=== PATIENT | male | born 1955 | race Caucasian/White ===

== ENCOUNTER 2022-05-19 17:07 | Emergency (ER) | payer OTHER, MEDICARE, MEDICAID | END 2022-05-19 19:50 | disposition home or self-care (01) | LOC: FB.ED 17:07 | DX: S16.1XXA Strain of muscle, fascia and tendon at neck level, initial encounter (principal); S39.012A Strain of muscle, fascia and tendon of lower back, initial encounter; S13.4XXA Sprain of ligaments of cervical spine, initial encounter; I10 Essential (primary) hypertension; Z86.73 Personal history of transient ischemic attack (TIA), and cerebral infarction without residual deficits; Z88.8 Allergy status to other drugs, medicaments and biological substances; V89.2XXA Person injured in unspecified motor-vehicle accident, traffic, initial encounter; Y92.410 Unspecified street and highway as the place of occurrence of the external cause | CPT/HCPCS: 70450; 72100; 72125; 99284 ==

== ENCOUNTER 2023-03-17 05:46 | Emergency (ER) | payer MEDICARE, OTHER ==
[2023-03-17] MEDS ORDERED: Morphine 4 MG/ML VIAL IM ONE (06:52)
[2023-03-17] MEDS ORDERED: hydrOXYzine HCl 50 MG/ML SDV IM ONE (06:52)
[2023-03-17 07:00] LABS: INFLUENZA A NAA NEGATIVE (NEGATIVE); INFLUENZA B NAA NEGATIVE (NEGATIVE); RESPIRATORY SYNCYTIAL VIR NAA NEGATIVE (NEGATIVE)
[2023-03-17 07:05] LABS: CORONAVIRUS COVID-19 NAA NEGATIVE (NEGATIVE)
[2023-03-17 07:30] LABS: HEMATOCRIT 36.1 % (38.3-50.1); HEMOGLOBIN 11.3 g/dL (12.9-17.7); MEAN CORPUSCULAR HEMOGLOBIN 28.9 pg (27.0-33.3); MEAN CORPUSCULAR HGB CONC 31.3 g/dL (28.7-35.3); MEAN CORPUSCULAR VOLUME 92.2 fL (80.8-98.7); MEAN PLATELET VOLUME 7.3 fL (6.7-11.0); PLATELET COUNT,PLT 111 x10(3)uL (117-477); RED BLOOD CELL COUNT 3.92 x10(6)uL (3.90-5.90); RED CELL DISTRIBUTION WIDTH 15.4 % (12.4-15.0)
[2023-03-17 07:34] LABS: WHITE BLOOD CELL COUNT,WBC 54.8 x10-3/uL (3.2-10.1)
[2023-03-17 07:37] LABS: BLOOD UREA NITROGEN,BUN 19 mg/dL (7-18); BUN/CREATININE RATIO 14.6 (9-20); CALCIUM 8.9 mg/dL (8.6-10.2); CARBON DIOXIDE,CO2 25 mmol/L (21-32); CHLORIDE,CL 103 mmol/L (100-110); CREATININE 1.3 mg/dL (0.70-1.30); EST CRCL DRUG DOSING (CG) 54.81 mL/min; ESTIMATED GFR 61 mL/min (>60); GLUCOSE RANDOM 116 mg/dL (80-116); POTASSIUM,K 3.7 mmol/L (3.5-5.3); SODIUM,NA 139 mmol/L (135-145)
[2023-03-17 07:47] LABS: BLASTS PERCENT MAN 6 % (0-0); LYMPHOCYTES PERCENT MAN 89 % (13-37); MONOCYTES PERCENT MAN 2 % (4-12); SEG NEUTROPHILS PERCENT MAN 3 % (46-82)
[2023-03-17 07:50] LABS: SEDIMENTATION RATE MANUAL 31 mm/hr (0-15)
== END 2023-03-17 08:51 | disposition other institution (70) ==
LOC: FB.ED 05:46
DX: C91.Z0 Other lymphoid leukemia not having achieved remission (principal); I10 Essential (primary) hypertension; Z88.8 Allergy status to other drugs, medicaments and biological substances; Z79.899 Other long term (current) drug therapy; Z20.822 Contact with and (suspected) exposure to COVID-19
CPT/HCPCS: 0241U; 36415; 70360; 71046; 80048; 85025; 85651; 86140; 87651; 96372; 99285; J2270; J3410

== ENCOUNTER 2023-03-30 14:11 | Emergency (ER) | payer MEDICARE, OTHER ==
[2023-03-30] MEDS ORDERED: Sodium Chloride 0.9% 10 ML Syringe FLUSH PRN (14:45)
[2023-03-30] MEDS ORDERED: Ondansetron 4 MG/2 ML SDV IVPUSH ONE ×2 (15:01→17:21)
[2023-03-30] MEDS ORDERED: Dextrose 5%-0.9% NaCl 1,000 ML IV SCH (15:15)
[2023-03-30 15:36] LABS: HEMATOCRIT 38.3 % (38.3-50.1); HEMOGLOBIN 12.2 g/dL (12.9-17.7); MEAN CORPUSCULAR HGB CONC 31.9 g/dL (28.7-35.3); MEAN CORPUSCULAR VOLUME 90.8 fL (80.8-98.7); MEAN PLATELET VOLUME 7.2 fL (6.7-11.0); PLATELET COUNT,PLT 125 x10(3)uL (117-477); RED BLOOD CELL COUNT 4.21 x10(6)uL (3.90-5.90); RED CELL DISTRIBUTION WIDTH 15.8 % (12.4-15.0)
[2023-03-30 15:37] LABS: BLOOD UREA NITROGEN,BUN 15 mg/dL (7-18); BUN/CREATININE RATIO 11.5 (9-20); CALCIUM 8.3 mg/dL (8.6-10.2); CARBON DIOXIDE,CO2 24 mmol/L (21-32); CHLORIDE,CL 98 mmol/L (100-110); CREATININE 1.3 mg/dL (0.70-1.30); ESTIMATED GFR 61 mL/min (>60); GLUCOSE RANDOM 101 mg/dL (80-116); POTASSIUM,K 3.2 mmol/L (3.5-5.3); SODIUM,NA 134 mmol/L (135-145)
[2023-03-30 15:42] LABS: ALANINE AMINOTRANSFERASE,ALT 36 U/L (12-36); ALBUMIN 3.8 g/dL (3.2-4.6); ALKALINE PHOSPHATASE 112 IU/L (56-112); ASPARTATE AMNIOTRANSFERASE,AST 28 IU/L (5-25); BILIRUBIN TOTAL 0.3 mg/dL (0.1-1.3); PROTEIN TOTAL,TP 7.6 g/dL (6.0-8.0)
[2023-03-30 15:46] LABS: LACTIC ACID 0.9 mmol/L (0.4-2.0)
[2023-03-30 16:24] LABS: WHITE BLOOD CELL COUNT,WBC 47.4 x10-3/uL (3.2-10.1)
[2023-03-30 16:45] LABS: LYMPHOCYTES PERCENT MAN 84 % (13-37); MONOCYTES PERCENT MAN 1 % (4-12); SEG NEUTROPHILS PERCENT MAN 15 % (46-82)
[2023-03-30] MEDS ORDERED: Pantoprazole 40 MG Vial IVPUSH ONE (17:21)
[2023-03-30] MEDS ORDERED: Ketorolac 30 MG/ML SDV IVPUSH ONE (17:21)
[2023-03-30] MEDS ORDERED: Potassium Chloride 20 MEQ Tab.ER PO ONE (17:25)
[2023-03-30] MEDS ORDERED: Sodium Chloride 0.9% 1,000 ML IV SCH (17:30)
[2023-03-30 17:41] LABS: BILIRUBIN,URINE NEGATIVE (NEGATIVE); GLUCOSE,URINE NORMAL (NORMAL); KETONES,URINE 15 mg/dL (NEGATIVE); LEUKOCYTE ESTERASE,URINE NEGATIVE (NEGATIVE); NITRITE,URINE NEGATIVE (NEGATIVE); OCCULT BLOOD,URINE MODERATE (NEGATIVE); PROTEIN,URINE NEGATIVE (NEGATIVE); UROBILINOGEN,URINE NORMAL (NEGATIVE)
[2023-03-30 17:42] LABS: APPEARANCE,URINE CLEAR (CLEAR); BACTERIA,URINE RARE (NS); COLOR,URINE YELLOW (YELLOW); RBC,URINE 0-5 (0-5); SQUAMOUS EPITHELIAL CELLS,UR OCCASIONAL (NS,R,O); WBC,URINE 0-5 (0-5)
[2023-03-30 19:00] LABS: BLOOD UREA NITROGEN,BUN 13 mg/dL (7-18); BUN/CREATININE RATIO 10.8 (9-20); CALCIUM 7.2 mg/dL (8.6-10.2); CARBON DIOXIDE,CO2 25 mmol/L (21-32); CHLORIDE,CL 102 mmol/L (100-110); CREATININE 1.2 mg/dL (0.70-1.30); EST CRCL DRUG DOSING (CG) 57.38 mL/min; ESTIMATED GFR 67 mL/min (>60); GLUCOSE RANDOM 126 mg/dL (80-116); POTASSIUM,K 3.1 mmol/L (3.5-5.3); SODIUM,NA 135 mmol/L (135-145)
[2023-03-30] MEDS ORDERED: Iopamidol 755 Mg/ML 100 ML Bottle IV ONE (19:30)
[2023-03-30] MEDS ORDERED: Potassium Chloride 20 MEQ Tab.ER PO STA (19:41)
[2023-03-30] MEDS ORDERED: Potassium Chloride 20 MEQ Tab.ER ONE (19:42)
[2023-03-30] MEDS ORDERED: metroNIDAZOLE 500 MG Tab PO STA (20:22)
[2023-03-30] MEDS ORDERED: Vancomycin 125 MG Cap PO STA (20:22)
== END 2023-03-30 20:55 | disposition home or self-care (01) ==
LOC: FB.ED 14:11
DX: E87.6 Hypokalemia (principal); A04.72 Enterocolitis due to Clostridium difficile, not specified as recurrent; C91.00 Acute lymphoblastic leukemia not having achieved remission; I10 Essential (primary) hypertension; Z88.8 Allergy status to other drugs, medicaments and biological substances
CPT/HCPCS: 36415; 71045; 74177; 80048; 80053; 81001; 83605; 84484; 85025; 87040; 87230; 93005; 96361; 96374; 96375; 96376; 99284; A9270; C9113; J1885; J2405; J7030; Q9967; 87425

== ENCOUNTER 2023-09-01 11:31 | Emergency (ER) | payer MEDICARE, OTHER ==
[2023-09-01] MEDS: Ondansetron 4 MG/2 ML SDV IVPUSH ONE (12:11)
[2023-09-01 12:23] LABS: BLOOD UREA NITROGEN,BUN 27 mg/dL (7-18); BUN/CREATININE RATIO 24.5 (9-20); CALCIUM 9.1 mg/dL (8.6-10.2); CARBON DIOXIDE,CO2 30 mmol/L (21-32); CHLORIDE,CL 99 mmol/L (100-110); CREATININE 1.1 mg/dL (0.70-1.30); EST CRCL DRUG DOSING (CG) 62.83 mL/min; ESTIMATED GFR 74 mL/min (>60); GLUCOSE RANDOM 100 mg/dL (80-116); HEMATOCRIT 38.1 % (38.3-50.1); HEMOGLOBIN 11.7 g/dL (12.9-17.7); MEAN CORPUSCULAR HEMOGLOBIN 29.5 pg (27.0-33.3); MEAN CORPUSCULAR HGB CONC 30.7 g/dL (28.7-35.3); MEAN CORPUSCULAR VOLUME 95.8 fL (80.8-98.7); MEAN PLATELET VOLUME 7.1 fL (6.7-11.0); PLATELET COUNT,PLT 112 x10(3)uL (117-477); POTASSIUM,K 4.2 mmol/L (3.5-5.3); RED BLOOD CELL COUNT 3.97 x10(6)uL (3.90-5.90); RED CELL DISTRIBUTION WIDTH 15.1 % (12.4-15.0); SODIUM,NA 136 mmol/L (135-145)
[2023-09-01 12:29] LABS: A/G RATIO 1.1; ALANINE AMINOTRANSFERASE,ALT 51 U/L (12-36); ALBUMIN 3.9 g/dL (3.2-4.6); ALKALINE PHOSPHATASE 126 IU/L (56-112); AMYLASE 83 U/L (25-115); ASPARTATE AMNIOTRANSFERASE,AST 32 IU/L (5-25); BILIRUBIN TOTAL 0.4 mg/dL (0.1-1.3); PROTEIN TOTAL,TP 7.5 g/dL (6.0-8.0)
[2023-09-01 12:32] LABS: TROPONIN I 4.6 pg/mL (4.0-60.3)
[2023-09-01 12:33] LABS: WHITE BLOOD CELL COUNT,WBC 119.7 x10-3/uL (3.2-10.1)
[2023-09-01 12:43] LABS: MONOCYTES PERCENT MAN 2 % (4-12); SEG NEUTROPHILS PERCENT MAN 5 % (46-82)
[2023-09-01 12:44] LABS: LYMPHOCYTES PERCENT MAN 93 % (13-37)
[2023-09-01] MEDS: Sodium Chloride 0.9% 1,000 ML IV SCH (12:45)
[2023-09-01] MEDS: Morphine 4 MG/ML VIAL IVPUSH ONE (13:00)
[2023-09-01] MEDS: Prochlorperazine 10 MG/2 ML SDV IVPUSH ONE (13:03)
[2023-09-01] MEDS: Morphine 2 MG/ML SYRINGE IVPUSH ONE (13:04)
[2023-09-01 13:07] LABS: BILIRUBIN,URINE NEGATIVE (NEGATIVE); GLUCOSE,URINE NORMAL (NORMAL); KETONES,URINE NEGATIVE (NEGATIVE); LEUKOCYTE ESTERASE,URINE NEGATIVE (NEGATIVE); NITRITE,URINE NEGATIVE (NEGATIVE); OCCULT BLOOD,URINE NEGATIVE (NEGATIVE); PROTEIN,URINE NEGATIVE (NEGATIVE); UROBILINOGEN,URINE NORMAL (NEGATIVE)
[2023-09-01 13:08] LABS: APPEARANCE,URINE CLEAR (CLEAR); BACTERIA,URINE NOT SEEN (NS); COLOR,URINE YELLOW (YELLOW); RBC,URINE 0-5 (0-5); SQUAMOUS EPITHELIAL CELLS,UR RARE (NS,R,O); WBC,URINE 0-5 (0-5)
== END 2023-09-01 14:40 | disposition home or self-care (01) ==
LOC: FB.ED 11:31
DX: C91.10 Chronic lymphocytic leukemia of B-cell type not having achieved remission (principal); D69.6 Thrombocytopenia, unspecified; I10 Essential (primary) hypertension; E78.00 Pure hypercholesterolemia, unspecified; Z86.73 Personal history of transient ischemic attack (TIA), and cerebral infarction without residual deficits; Z79.899 Other long term (current) drug therapy; Z88.8 Allergy status to other drugs, medicaments and biological substances
CPT/HCPCS: 36415; 71045; 74176; 80053; 81001; 82150; 83690; 84484; 85025; 93005; 93010; 96361; 96374; 96375; 99284; 99284-25; J0780; J2270; J2405; J7030

== ENCOUNTER 2024-06-07 13:12 | Emergency (ER) | payer MEDICARE, OTHER ==
[2024-06-07 13:40] LABS: HEMATOCRIT 34.8 % (38.3-50.1); HEMOGLOBIN 11.5 g/dL (12.9-17.7); MEAN CORPUSCULAR HEMOGLOBIN 29.8 pg (27.0-33.3); MEAN CORPUSCULAR HGB CONC 33.1 g/dL (28.7-35.3); MEAN PLATELET VOLUME 7.7 fL (6.7-11.0); PLATELET COUNT,PLT 162 x10(3)uL (117-477); RED BLOOD CELL COUNT 3.86 x10(6)uL (3.90-5.90); RED CELL DISTRIBUTION WIDTH 14.6 % (12.4-15.0); WHITE BLOOD CELL COUNT,WBC 19.8 x10-3/uL (3.2-10.1)
[2024-06-07 13:51] LABS: BLOOD UREA NITROGEN,BUN 16 mg/dL (7-18); BUN/CREATININE RATIO 12.3 (9-20); CALCIUM 8.8 mg/dL (8.6-10.2); CARBON DIOXIDE,CO2 29 mmol/L (21-32); CHLORIDE,CL 98 mmol/L (100-110); CREATININE 1.3 mg/dL (0.70-1.30); ESTIMATED GFR 60 mL/min (>60); GLUCOSE RANDOM 111 mg/dL (80-116); POTASSIUM,K 3.9 mmol/L (3.5-5.3); SODIUM,NA 135 mmol/L (135-145)
[2024-06-07 14:03] LABS: BAND PERCENT MAN 1 % (0-6); LYMPHOCYTES PERCENT MAN 66 % (13-37); MONOCYTES PERCENT MAN 3 % (4-12); SEG NEUTROPHILS PERCENT MAN 30 % (46-82)
[2024-06-07 14:04] LABS: A/G RATIO 0.7; ALANINE AMINOTRANSFERASE,ALT 26 U/L (12-36); ALBUMIN 2.8 g/dL (3.2-4.6); ALKALINE PHOSPHATASE 96 IU/L (56-112); ASPARTATE AMNIOTRANSFERASE,AST 16 IU/L (5-25); BILIRUBIN TOTAL 0.6 mg/dL (0.1-1.3); PROTEIN TOTAL,TP 6.7 g/dL (6.0-8.0)
[2024-06-07 14:28] LABS: LACTIC ACID 1.1 mmol/L (0.4-2.0)
[2024-06-07] MEDS: Iopamidol 755 Mg/ML 100 ML Bottle IV SCH (14:58)
[2024-06-07] MEDS: Sodium Chloride 0.9% 1,000 ML IV SCH (15:05)
[2024-06-07] MEDS: cefTRIAXone 1 GM Vial IVPUSH SCH (16:35)
[2024-06-07] MEDS: Sodium Chloride 0.9% 10 ML Syringe FLUSH PRN (16:35)
[2024-06-07] MEDS: Azithromycin 500 MG in Sodium Chloride 0.9% 250 ML IV SCH (16:41)
[2024-06-07] MEDS: Metoclopramide 10 MG/2 ML SDV IVPUSH ONE (16:43)
[2024-06-07] MEDS: Ketorolac 30 MG/ML SDV IVPUSH ONE (16:43)
== END 2024-06-07 18:00 ==
LOC: FB.ED 13:12 → SUPCPDRO 13:12 → FB.ED 18:00
DX: E88.09 Other disorders of plasma-protein metabolism, not elsewhere classified (principal); C91.50 Adult T-cell lymphoma/leukemia (HTLV-1-associated) not having achieved remission; C91.00 Acute lymphoblastic leukemia not having achieved remission; I10 Essential (primary) hypertension; E78.00 Pure hypercholesterolemia, unspecified; Z86.73 Personal history of transient ischemic attack (TIA), and cerebral infarction without residual deficits; Z87.891 Personal history of nicotine dependence; Z88.8 Allergy status to other drugs, medicaments and biological substances; Z79.899 Other long term (current) drug therapy; Z79.82 Long term (current) use of aspirin
CPT/HCPCS: 36415; 71275; 80053; 83605; 84484; 85025; 85379; 93005; 96361; 96374; 96375; 99285; J0456; J0696; J1885; J2765; J3490; J7030; J7050; Q9967; U0002